=== PATIENT | male | born 1975 | race Caucasian/White ===

== ENCOUNTER → 2022-02-26 10:11 | Outpatient (BNVA) | payer OTHER, SELFPAY | PROVIDERS: Visit Provider Family Medicine | DX: Z76.89 Persons encountering health services in other specified circumstances (principal) | CPT/HCPCS: 80053; 80061; 84153; 85025 ==

== ENCOUNTER → 2023-03-05 08:39 | Outpatient (BNVA) | payer OTHER, SELFPAY | PROVIDERS: Visit Provider Family Medicine | DX: Z00.00 Encounter for general adult medical examination without abnormal findings (principal) | CPT/HCPCS: 80053; 80061 ==

== ENCOUNTER → 2023-09-08 16:23 | Outpatient (BNVA) | payer OTHER, SELFPAY | PROVIDERS: PCP Family Medicine; Visit Provider Family Medicine | DX: F41.9 Anxiety disorder, unspecified (principal); F32.A Depression, unspecified | CPT/HCPCS: 80053; 80061 ==

== ENCOUNTER → 2024-03-11 09:00 | Outpatient (BNVA) | payer OTHER, SELFPAY | PROVIDERS: PCP Family Medicine; Visit Provider Family Medicine | DX: Z12.5 Encounter for screening for malignant neoplasm of prostate (principal); F41.9 Anxiety disorder, unspecified; F32.A Depression, unspecified; E78.2 Mixed hyperlipidemia | CPT/HCPCS: 80053; 80061; G0103 ==

== ENCOUNTER → 2025-03-10 15:30 | Outpatient (BNVA) | payer OTHER, SELFPAY | PROVIDERS: PCP Family Medicine; Visit Provider Family Medicine | DX: Z00.00 Encounter for general adult medical examination without abnormal findings (principal); R79.89 Other specified abnormal findings of blood chemistry; F41.9 Anxiety disorder, unspecified; F32.A Depression, unspecified; E78.2 Mixed hyperlipidemia; Z12.5 Encounter for screening for malignant neoplasm of prostate; E55.9 Vitamin D deficiency, unspecified | CPT/HCPCS: 80053; 80061; 82306; 82607; 84443; 85025; G0103 ==

== ENCOUNTER 2025-04-04 06:25 | Day surgery (SDC) | payer OTHER, SELFPAY ==
[2025-04-04 06:48] VITALS: BP 147/99; PULSE 96; RESP 16; TEMP 36.5; O2SAT 97; BMI 36.6
--- NOTE | 2025-04-04 07:09 | ANES.PREANE2 ---
Pre-Anesthetic Assessment Height/Weight: Height 1.83 m Weight 122.47 kg Temp Pulse Resp BP Pulse Ox O2 Del Method 97.7 F 96 16 147/99 97 Room Air 04/04/25 06:48 04/04/25 06:48 04/04/25 06:48 04/04/25 06:48 04/04/25 06:48 04/04/25 06:48 Preop Diagnosis: screening Operation Date: 04/04/25 07:30 Proposed Procedures p Colonoscopy [id number] [id number] Z12.11(Not Applicable) - Costa Gonzalez MD Familial anesthetic complications: none Was Beta Adelaida taken within 24 hours: N/A Was Clonidine taken within 24 hours: N/A Last intake: Intake Last Liquid Date 04/03/25 Last Liquid Time 20:00 Last Solid Date 04/02/25 Last Solid Time 19:00 Social Tobacco (quit smoking, currently uses nicotine pouches daily. Has not used any today ) and No tobacco Exam alert, oriented x 3 and clear to auscultation bilaterally Airway Mallampati: Class I Dentition: full Comments: Comments: large tello History/ROS No significant history except as noted Pulmonary None reported CV/HEM None reported None reported Hepatic None reported GI Gastroesophageal Reflux Disease (well controlled ) Metabolic Hyperlipidemia [facility] None reported Neuropsych Depression Anesthetic Plan ASA status: 3 Anesthesia: Anesthesia Evaluation and MAC Risk of > 500 ml blood loss (7ml/kg in children): Yes, adequate IV access and fluids planned Medications/Allergies Home Medications ?Medication ?Instructions ?Recorded ?Confirmed ?Last Taken ?Type apremilast 10 mg (4)-20 mg (51) See Rx Instructions PO .COMPLEX 03/10/25 04/04/25 04/03/25 Rx tablets in a dose pack (Otezla #51 ea Starter) buspirone 10 mg tablet 10 mg PO TID PRN anxiety attacks 03/10/25 04/04/25 04/03/25 Rx #60 tabs escitalopram oxalate 10 mg tablet 10 mg PO DAILY #90 tabs 03/10/25 04/04/25 04/03/25 Rx (Lexapro) pravastatin 20 mg tablet 20 mg PO DAILY #90 tabs 03/15/25 04/04/25 04/03/25 Rx Allergies Allergy/AdvReac Type Severity Reaction Status Date / Time No Known Allergies Allergy Verified 03/28/25 09:18 Current Medications Generic Name Dose Route Start Last Admin Trade Name Freq PRN Reason Stop Dose Admin Sodium Chloride 1,000 mls @ 15 mls/hr 04/04/25 06:29 04/04/25 06:55 Sodium Chloride 0.9% IV 04/05/25 06:28 15 mls/hr .Q24H PRN Administration COLONOSCOPY FLUIDS PFSH Anesthesia Family History Father CAD (coronary artery disease) Mother Healthy female adult Social History Smoking and tobacco/nicotine status: never used tobacco/nicotine Alcohol intake: current Alcohol intake frequency: few times a month Substance/Drug Use: never Adopted: No Caregiver/support person: No Lives independently: Yes Household members: spouse and children Housing: House Marital status: Number of children: 2 Highest education level completed: Bachelor's Degree Current occupational status: employed Current occupation: Office furniture sales Current occupational exposures/hazards: Yes Pets and animals: Yes Leisure activites: exercise Sexually active: Yes Do you think of yourself as: Straight/Heterosexual Current gender identity: Male Special evert needs: No Agree to transfusion: Yes
--- NOTE | 2025-04-04 07:11 | W.PM.OPSUD ---
Surgery/Procedure H&P Update DATE OF PROCEDURE: April 04, 2025 DATE H&P PERFORMED: 03/11/25 H&P UPDATE INFORMATION: I have reviewed H&P completed within last 30 days, I have examined patient prior to procedure, No changes to prior documentation and Risks and benefits of the procedure reviewed PREOP DIAGNOSIS: screening PLANNED PROCEDURE: Operation Date: 04/04/25 07:30 Proposed Procedures p Colonoscopy [id number] G0121 Z12.11(Not Applicable) - Costa Gonzalez MD
[2025-04-04 08:15] VITALS: BP 108/63; PULSE 97; RESP 16; TEMP 36.1; O2SAT 96
[2025-04-04 08:30] VITALS: BP 128/69; PULSE 65; RESP 16; O2SAT 95
[2025-04-04 08:41] VITALS: BP 138/83; PULSE 63; RESP 18; O2SAT 97
--- NOTE | 2025-04-04 08:55 | ANE.PACU2 ---
Inpatient post-anesthesia follow up: Airway intact: Yes Vital signs: Temperature 97.0 F Pulse Rate 63 Respiratory Rate 18 Blood Pressure 138/83 Pulse Oximetry 97 Oxygen Delivery Me thod Room Air Oxygen Flow Rate Fraction of Inspir ed Oxygen Hydration adequate: Yes Nausea and vomiting: No Pain level: 1 Mental status: Baseline
== END 2025-04-04 08:55 | disposition home or self-care (01) ==
PROVIDERS: PCP Family Medicine; Visit Provider Student in an Organized Health Care Education/Training Program
PROC: 0DJD8ZZ Inspection of Lower Intestinal Tract, Via Natural or Artificial Opening Endoscopic (ICD-10-PCS; CPT 45378; principal; 2025-04-04 07:30)
DX: Z12.11 Encounter for screening for malignant neoplasm of colon (principal); K57.30 Diverticulosis of large intestine without perforation or abscess without bleeding; D12.5 Benign neoplasm of sigmoid colon; D12.8 Benign neoplasm of rectum; K21.9 Gastro-esophageal reflux disease without esophagitis; F32.A Depression, unspecified; E78.5 Hyperlipidemia, unspecified
CPT/HCPCS: 45380; 45385; 88305; J2704; J7030; J9999